=== PATIENT | male | born 1980 | race Caucasian/White ===

== ENCOUNTER 2024-06-28 10:00 | Emergency (ER) | payer OTHER, SELFPAY ==
--- NOTE | 2024-06-28 10:18 | ED.URI ---
HPI - URI/Sore Throat General Chief Complaint: Upper Respiratory Infection Stated Complaint: sorethroat, nasal drainage Time Seen by Provider: 06/28/24 10:18 Source: patient and RN notes reviewed Mode of arrival: ambulatory Limitations: no limitations History of Present Illness HPI Narrative: 43-year-old male presents Express Care complaining of upper respiratory symptoms for 2 days. Patient states her daughter who was diagnosed with strep throat approximately 4 days ago was treated with antibiotics. Patient states he has a sore throat, congestion, cough. Patient denies any fevers, body aches, chills, ear pain, chest pain or shortness of breath. Patient has not tried anything [id number] for symptom management. Patient states he leaves for [email or web address] in 2 days. Related Data Allergies Allergy/AdvReac Type Severity Reaction Status Date / Time No Known Allergies Allergy Verified 06/28/24 10:20 Review of Systems Review of Systems: CONSTITUTIONAL: Denies fever, chills, or sweats. EYES: Denies visual changes, redness, or discharge. ENT: Denies rhinorrhea or otalgia. Positive for congestion and sore throat. CARDIOVASCULAR: Denies chest pain, palpitations, or edema. RESPIRATORY: Positive for cough negative for dyspnea. GASTROINTESTINAL: Denies abdominal pain, nausea, vomiting, or diarrhea. GENITOURINARY: Denies dysuria or hematuria. SKIN: Denies rash or itching. MUSCULOSKELETAL: Denies back pain, joint pain, or myalgia. NEUROLOGIC: Denies headache, numbness, or weakness. PSYCHIATRIC: Denies anxiety or depression. All other systems reviewed are negative, except as documented in HPI. PMFSH Comments At the time of my signature, I reviewed and agree with the nursing past medical, surgical, social, and family history. There is no relevant family history pertinent to the patient complaint. Exam Narrative: GENERAL: This is a well-nourished, well-developed adult, in no apparent distress. They are non ill-appearing, nontoxic appearing. HEAD: normocephalic, atraumatic. EYES: Sclera clear/white. Vision is grossly intact. EARS: External ears normal, auditory canals clear and without drainage, TMs normal without perforation. Hearing grossly intact. NOSE: External nose normal with no obvious nasal discharge, nasal turbinates erythematous bilaterally, no rhinorrhea. THROAT: Mucous membranes moist, posterior pharynx with mild erythema without swelling. Uvula midline. Postnasal drip present NECK: Neck supple, non-tender without lymphadenopathy, masses or thyromegaly. CARDIOVASCULAR: Regular rate and rhythm without murmurs, gallops, or rubs. RESPIRATORY: Clear to auscultation. Breath sounds equal bilaterally. No wheezes, rales, or rhonchi. SKIN: warm, Dry, intact with no suspicious lesions or rash, good texture and turgor. NEURO: awake, alert, and oriented to person, place and time. There were no obvious focal neurologic abnormalities. EXTREMITIES: No joint tenderness, effusion, or edema noted. Course Course Emergency Course: Patient is aware of diagnosis, understands and agrees to treatment plan. Anticipatory guidance given. Patient agrees to follow-up as directed and is aware of reasons to seek care at the emergency department. Portions of this record may have been created with voice recognition software Level of Care: Express Care Visit Vital Signs Vital signs: Vital Signs Temperature 97.5 F L 06/28/24 10:23 Pulse Rate 77 06/28/24 10:23 Respiratory Rate 18 06/28/24 10:23 Blood Pressure 134/88 06/28/24 10:23 Pulse Oximetry 99 06/28/24 10:23 Oxygen Delivery Room Air 06/28/24 10:23 Temperature 97.5 F L 06/28/24 10:23 Pulse Rate 77 06/28/24 10:23 Respiratory Rate 18 06/28/24 10:23 Blood Pressure 134/88 06/28/24 10:23 Pulse Oximetry 99 06/28/24 10:23 Oxygen Delivery Room Air 06/28/24 10:23 Reviewed MDM - URI/Sore Throat MDM Narrative Medical decision making narrative: Rapid strep is negative. Strep throat culture is pending. Center score of 0. It is likely patient has a viral illness. Since he was exposed to strep and leaving the country before throat culture will result, I will send a prescription of amoxicillin to the pharmacy and the patient has agreed to only take it if the strep culture becomes back positive. Otherwise he will treat his symptoms as a viral illness. Discussed physical exam findings. Advised supportive measures and signs/symptoms to go to the ER. Pt is appropriate for outpt treatment and f/u. Differential Diagnosis Differential diagnosis: Likely upper respiratory infection, viral infection and pharyngitis (Viral or stress) Lab Data Attestation: I reviewed the patient's lab results. Labs: Lab Results 06/28/24 Range/Units 10:29 POC Grp A Strep Screen Negative (Negative) Critical Care Time Critical Care Time Critical Care Time: No Discharge Plan Discharge Clinical Impression: Pharyngitis Qualifiers: Pharyngitis/tonsillitis etiology: unspecified etiology Qualified Code(s): J02.9 - Acute pharyngitis, unspecified Patient Disposition: Home Condition: Stable Instructions: Antibiotic Form, Pharyngitis (ED) Additional Instructions: Your rapid strep swab was negative today at [facility]. You will be notified in a few days if the culture comes back positive for strep. Since you are leaving the country before your culture will result, there will be a prescription for amoxicillin to fill, please do not take this unless your strep culture comes back positive. Your symptoms are likely due to a viral illness, which is not treated with antibiotics. Viral symptoms can be present for up to 10-14 days. Take ibuprofen or Tylenol for fever or pain. Rest and stay hydrated. Follow up with your PCP in 3-5 days if symptoms are not improving. Go to the ER immediately if you difficulty breathing or swallowing Patient Language: [place] Prescriptions: New amoxicillin 500 mg tablet 500 mg PO Q12H 10 Days Qty: 20 0RF Follow-up/Referrals: Krunal,Shruti Cheng MD [Primary Care Provider] - Time of Disposition: 10:44
[2024-06-28 10:23] VITALS: BP 134/88; PULSE 77; RESP 18; TEMP 36.4; O2SAT 99
[2024-06-28 10:31] LABS: EDSTREPNEGPOS1 Negative (Negative)
--- OUTSIDE RECORDS SUMMARY | 2024-06-28 10:56 | XMS_ITS | Clinical Summary ---
Author Organization [address] Address [address] [place] [id number] Care Team Providers Care Agricultural Extension Specialist Name Role Phone Harry Padilla MD Unavailable [phone] Shruti Hector MD Primary Care Pro vider Allergies No known active allergies Medications omeprazole (PriLOSEC) 20 mg capsuleIndications:Left sided abdominal pain Take 1 capsule daily for 8 weeks. Then take 1 capsule every other day for 2 weeks then stop. 63 capsule 025 Active atorvastatin (LIPITOR) 20 mg tabletIndications:Pure hypercholesterolemia Take 1 tablet (20 mg total) by mouth daily 30 tablet 11 022 2024 Discontinued Active Problems Problem Noted Date Diagnosed Date Chronic LLQ pain 12/22/2023 Assessment & Plan (12/22/2023 6:15 AM CDT): Chronic, worsening Encouraged to get lab work done, previously ordered by PCP Ordered CT abdomen pelvis with contrast Strict return precautions given seek ER evaluation BMI 25.0-25.9,adult 12/10/2018 Assessment & Plan (12/10/2018 9:53 AM CDT): BMI is okay. Normal range is 18-25 and overweight is 25-30. Continue to work on eating healthy and exercising at least 150 minutes per week. 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 Discussed diet and exercise Discussed skin cancer prevention and screening Reviewed labs Assessment & Plan (12/10/2018 9:51 AM CDT): PMH: 12/10/2018 Last colonoscopy/cologuard: Last PSA: Last tdap: 2016 Last Prevnar/pneumovax: Last Shingrix: Last eye exam: Pure hypercholesterolemia 12/10/2018 Assessment & Plan (01/20/2023 8:34 AM SALES PROGRAM MANAGER): Check lipids Continue statin Assessment & Plan (01/16/2022 9:47 AM CDT): Recheck lipids after starting atrovastatin Assessment & Plan (10/17/2021 12:53 PM CDT): Reviewed recent lipids, ldl >190 Discussed recommendations to start statin, will start atorvastatin Discussed diet and exercise Assessment & Plan (12/10/2018 9:55 AM CDT): New diagnosis. Discussion heart risk with patient. Patient will try lxjc-lzz-yowxnrs fish oil at 1000 mg daily. Patient will try to increase his exercise to 5 times a week. Educated patient on low-cholesterol diet. Patient will repeat labs next year through work. Encounters Date Type Department Care Team Description 06/17/2024 9:55 AM CDT Lab [facility] Lab [address] [place] [address] Left sided abdominal pain; Encounter for screening for other viral diseases; Pure hypercholesterolemi a; Annual physical exam 06/17/2024 Results Follow-Up [facility] Primary Care at [address] [phone] Shruti Hector MD 06/16/2024 3:30 PM CDT Office Visit [facility] Medical [facility] Primary Care at [address] [phone] Shruti Hector MD Left sided abdominal pain (Primary Dx); Pure hypercholesterolemi a; Encounter for screening for other viral diseases; Annual physical exam 06/13/2024 Telephone [facility] Primary Care at [address] [phone] Shruti Hector MD Appointment Request; warm transfer from Last 3 Months Immunizations Immunization Administration Dates Next Due Influenza, Unspecified 01/20/2023(Deferr ed: Patient Refused),01/16/2022(Deferred: Patient Refused) Tdap 06/16/2024(Deferred: Patient Ref used) Surgical History Surgery Date Site/Laterality Comments VASECTOMY 03/16/2018 - 03/15/2019 HERNIA REPAIR Medical History Medical History Date Comments Concussion as child Family History Medical History Relation Name Comments Heart attack Brother 1 Sukhwinder Hypertension Brother 1 Sukhwinder Anxiety disorder Brother 2 Cancer Father Santos Diverticulitis Father Santos Hypertension Father Santos cll Father Santos Heart attack Maternal Grandfather Bernard Breast cancer Maternal Grandmother Breast cancer Mother Jennifer Cancer Mother Jennifer Hypertension Mother Jennifer Kidney disease Mother Jennifer Stroke Mother Jennifer Liver cancer Paternal Grandfather Cancer Paternal Grandmother Gina Heart attack Paternal Grandmother Gina Anxiety disorder Sister 1 Asha Cancer Sister 1 Asha Bone cancer Sister 2 Breast cancer Sister 2 Liver cancer Sister 2 Anxiety disorder Sister 3 Relation Name Status Comments Brother 1 Sukhwinder Alive Brother 2 Alive Father Santos Maternal Grandfather Bernard Maternal Grandmother Mother Jennifer Alive Paternal Grandfather Paternal Grandmother Gina Sister 1 Asha Alive Sister 2 Sister 3 Alive Social History Tobacco Use Types Packs/Day Years Used Date Smoking Tobacco: Never Smokeless Tobacco: Never Alcohol Use Standard Drinks/Week Comments Yes 0 (1 standard drink = 0.6 oz pur e alcohol) AUDIT-C Answer Date Recorded Q1: How often do you have a drink containing alcohol? 4 or more times a week 10/15/2023 Q2: How many drinks containi ng alcohol do you have on a typical day when you are drinking? 1 or 2 Q3: How often do you have si x or more drinks on one occasion? Weekly 10/15/2023 PHQ-2 Answer Date Recorded PHQ-2 Total Score (If total score is 3 or more points, staff should administer the PHQ-9) 0 06/16/2024 Personal Safety Answer Date Recorded Have you ever been in or are you currently in a harmful physical or emotional relationship or is someone making you feel afraid or unsafe? Denies 10/26/2023 Sex and Gender Information Value Date Recorded Sex Assigned at Not on file Legal Sex Male 8:46 AM CDT Gender Identity Not on file Sexual Orientation Not on file Obstetrics History Last Filed Vital Signs Vital Sign Reading Time Taken Comments Blood Pressure 134/76 06/16/2024 3:30 PM CDT Pulse 96 06/16/2024 3:30 PM CDT Temperature 36.9 C (98.5 F) 06/16/2024 3:30 PM CDT Respiratory Rate 18 06/16/2024 3:30 PM CDT Oxygen Saturation 97% 06/16/2024 3:30 PM CDT Inhaled Oxygen Concentration - - Weight 89.6 kg (197 lb 8 oz) 06/16/2024 3:30 PM CDT Height 185.4 cm (6' 1 ) 06/16/2024 3:30 PM CDT Body Mass Index 26.06 06/16/2024 3:30 PM CDT Plan of Treatment Health Maintenance Due Date Last Done Comments Regular Well Visit/Exam 18-64 01/21/2024 01/20/2023, 01/20/2023, 01/16/2022, Additional history exists DTaP/Tdap/Td Vaccine (1 - Tdap) 06/16/2025 Postponed from 1993 (Patient declined, but will receive in the future) Depression Screening 06/16/2025 06/16/2024, 01/20/2023, 10/17/2021, Additional history exists Hepatitis B Screening Completed 06/17/2024 Hepatitis C Screening Completed 06/17/2024 HPV Vaccines Aged Out No longer eligi ble based on patient's age to complete this topic Influenza Vaccine Discontinued Pneumococcal vaccine <65 Aged Out No longer eligible based on patient's age to complete this topic Varicella Vaccines Discontinued Medical Devices Implanted Type Area Human Resources Hr Representative Device Identifier Shelf Expiration Date Model / Serial / Lot [employer]/C R Bard Ventralex St Sepra Sorbaflex 2.5in [place] Open Bioresorbable [id number] - [id number] Implanted:Qty: 1 on 10/26/2023 by Adriano Alvarado MD at [facility] Mesh N/A: Umbilical [employer] [id number] 08/10/2024 [id number] / / [id number] Procedures Procedure Name Priority Date/Time Associated Diagnosis Comments EGFR Routine 06/17/2024 10:30 AM CDT Annual physical exam DIFFERENTIAL AUTO Routine 06/17/2024 10: 30 AM CDT Annual physical exam HEMOGLOBIN A1C Routine 06/17/2024 10:30 AM CDT Annual physical exam CBC WITH AUTO DIFFERENTIAL Routine 06/17/2024 10:30 AM CDT Annual physical exam COMPREHENSIVE METABOLIC PANEL Routine 06/17/2024 10:30 AM CDT Annual physical exam THYROID FUNCTION CASCADE Routine 06/17/2024 10:30 AM CDT Annual physical exam LIPID PANEL Routine 06/17/2024 10:30 AM CDT Pure hypercholesterolem ia Annual physical exam H. PYLORI BREATH TEST Routine 06/17/2024 10:30 AM CDT Left sided abdominal pain HEPATITIS C ANTIBODY Routine 06/17/2024 10:30 AM CDT Encounter for screening for other viral diseases HEPATITIS B SURFACE ANTIGEN Routine 06/17/2024 10:30 AM CDT Encounter for screening for other viral diseases HEPATITIS B CORE ANTIBODY, TOTAL Routine 06/17/2024 10:30 AM CDT Encounter for screening for other viral diseases HEPATITIS B SURFACE ANTIBODY (IMMUNE STATUS) Routine 06/17/2024 10:30 AM CDT Encounter for screening for other viral diseases from Last 3 Months Results * eGFR (06/17/2024 10:30 AM CDT) eGFR >90 >=60 mL/min/1. 73 m2 Comment: Interpretive Data Reference Interval Normal >/= 90 mL/min/1.73m2 Mildly decreased* 60 - 89 mL/min/1.73m2 Mildly to moderately decreased 45 - 59 mL/min/1.73m2 Moderately to severely decreased 30 - 44 mL/min/1.73m2 Severely decreased 15 - 29 mL/min/1.73m2 Kidney Failure < 15 mL/min/1.73m2 *Relative to young adult level Estimated glomerular filtration rate is determined by the 2020 CKD-EPI equation recommended by the National Kidney Foundation (A Unifying Approach to GFR Estimation: Recommendations of the NKF-ASK Task Force on Reassessing the Inclusion of Race in Diagnosing Kidney Disease, JASN 2020). The CKD-EPI equation should not be used for patients with unstable renal function and has not been validated in children and those over 70. Current interpretive data was last reviewed 2021. Testing performed by: [facility], [address] [place] [address]., [address] Blood 06/17/2024 10:3 0 AM CDT 06/17/2024 10:53 AM CDT us Shruti Hector MD LAB BLOOD ORDERAB LES Final Result [facility] [address] [facility] Department [place] [address] * Differential, auto (06/17/2024 10:30 AM CDT) Neutrophil abs 2.02 1.50 - 6.50 K/cumm Comment:Testing performed by : [address] [address] Imm gran abs 0.00 0.00 - 0.10 K/cumm ROS[facility] Comment:Testing performed by : [address] [address] Lymphocyte abs 1.61 0.80 - 3.30 K/cumm [facility] Comment:Testing performed by : [address] [address] Monocyte abs 0.49 0.20 - 0.80 K/cumm ROS[facility]IO Comment:Testing performed by : [address] [address] Eosinophil abs 0.09 0.00 - 0.50 K/cumm ROS[facility]IO Comment:Testing performed by : [address] [address] Basophil abs 0.03 0.00 - 0.10 K/cumm ROS[facility]IO Comment:Testing performed by : [address] [address] Neutrophil pct 47.6 % [facility] Comment: Interpretive Data Percent cell count reference ranges are not reported, since discordance with absolute values may lead to misinterpretation of CBC data. Current Interpretive Data was last revised on 2017. Testing performed by: [address] [address] Imm gran pct 0.0 % [facility] Comment: Interpretive Data Percent cell count reference ranges are not reported, since discordance with absolute values may lead to misinterpretation of CBC data. Current Interpretive Data was last revised on 2017. Testing performed by: [address] [address] Lymphocyte pct 38.0 % [facility] Comment: Interpretive Data Percent cell count reference ranges are not reported, since discordance with absolute values may lead to misinterpretation of CBC data. Current Interpretive Data was last revised on 2017. Testing performed by: [address] [address] Monocyte pct 11.6 % [facility] Comment: Interpretive Data Percent cell count reference ranges are not reported, since discordance with absolute values may lead to misinterpretation of CBC data. Current Interpretive Data was last revised on 2017. Testing performed by: [address] [address] Eosinophil pct 2.1 % [facility] Comment: Interpretive Data Percent cell count reference ranges are not reported, since discordance with absolute values may lead to misinterpretation of CBC data. Current Interpretive Data was last revised on 2017. Testing performed by: [address] [address] Basophil pct 0.7 % [facility] Comment: Interpretive Data Percent cell count reference ranges are not reported, since discordance with absolute values may lead to misinterpretation of CBC data. Current Interpretive Data was last revised on 2017. Testing performed by: [address] [address] Blood 06/17/2024 10:3 0 AM CDT 06/17/2024 10:54 AM CDT us Shruti Hector MD LAB BLOOD ORDERAB LES Final Result [facility] [address] [facility] Department [place] [address] * Thyroid Function [place] (06/17/2024 10:30 AM CDT) TSH 1.81 0.30 - 4.20 mcIUnit/mL Comment:Testing performed by : [address] [address] Blood 06/17/2024 10:3 0 AM CDT 06/17/2024 10:53 AM CDT us Shruti Hector MD LAB BLOOD ORDERAB LES Final Result [facility] [address] [facility] Department [place] [address] * CBC with auto differential (06/17/2024 10:30 AM CDT) WBC 4.24 3.80 - 9.90 K/cumm Comment:Testing performed by : [address] [address] Hgb 16.2 13.0 - 17.5 g/dL [facility] Comment:Testing performed by : [address] [address] Hct 49.4 38.9 - 50.3 % [facility] Comment:Testing performed by : [address] [address] Plt 254 150 - 400 K/cumm [facility] Comment:Testing performed by : [address] [address] MPV 9.9 9.1 - 12.3 fL [facility] Comment:Testing performed by : [address] [address] RBC 5.45 4.30 - 5.80 M/cumm [facility] Comment:Testing performed by : [address] [address] MCV 90.6 81.3 - 96.4 fL [facility] Comment:Testing performed by : [address] [address] MCH 29.7 27.1 - 33.3 pg [facility] MAGDALENO Comment:Testing performed by : [address] [address] MCHC 32.8 32.3 - 35.7 g/dL [facility] Comment:Testing performed by : [address] [address] RDW CV 12.4 11.1 - 14.9 % [facility] MAGDAL[facility] Comment:Testing performed by : [address] [address] RDW SD 40.6 35.7 - 48.1 fL [facility] MAG[facility] Comment:Testing performed by : [address] [address] NRBC abs 0.00 0.00 - 0.01 K/cumm [facility] MAGDALENO Comment:Testing performed by : [address] [address] Blood 06/17/2024 10:3 0 AM CDT 06/17/2024 10:54 AM CDT Shruti Hector MD LAB BLOOD ORDERAB LES Final Result Performing Organization Address [facility] de Phone Number [address] [place] [address] * Hepatitis C antibody Blood (06/17/2024 10:30 AM CDT) Hep C Ab Nonreactive Nonreactive Comment: Antibodies to HCV not detected. Does NOT exclude the possibility of recent exposure to HCV. Current interpretive data was last revised on 21 Interpretive Data Nonreactive: Antibodies to HCV not detected. Does NOT exclude the possibility of recent exposure to HCV. Equivocal: Equivocal for HCV antibodies. Supplemental molecular testing will be automatically performed to determine infection status in accordance with current CDC screening recommendations. Reactive: Positive for HCV antibodies. This may represent current or past HCV infection. Supplemental molecular testing will be automatically performed to determine current infection status in accordance with current CDC screening recommendations. Interpretive data was last revised on 2019. Blood 06/17/2024 10:3 0 AM CDT 06/17/2024 12:43 PM CDT Shruti Hector MD LAB MICROBIOLOGY - GENERAL ORDERABLES Final Result Performing Organization Address [facility] de Phone Number CERNER [address] [address] * H. pylori breath test (06/17/2024 10:30 AM CDT) Pathologist [facility] H. pylori, breath test Negative Negative [facility] Comment: Result indicates the absence of current Helicobacter pylori infection. Test Performed by: [facility] [address] [place] [address] Field Irrigation Worker: Linden Louise Ph.D.; CLIA# [id number] Testing performed by: [facility], [address] [place] [address]., [address] Breath 06/17/2024 10:3 0 AM CDT 06/17/2024 10:53 AM CDT Shruti Hector MD LAB BODY FLUIDS A ND STOOLS ORDERABLES Final Result [facility] [address] [address] [facility] * Hepatitis B core antibody, total Blood (06/17/2024 10:30 AM CDT) [facility] Hep B core IgG/IgM Nonreactive Nonreactive Comment:Testing performed by : [facility], [address] [facility] [place]., [address] Blood 06/17/2024 10:3 0 AM CDT 06/17/2024 1:44 PM CDT Shruit Hector MD LAB MICRO BIOLOGY - GENERAL ORDERABLES Edited Result - Final [facility] [address] [address] * Hepatitis B surface antibody (immune status) Blood (06/17/2024 10:30 AM CDT) Pathologist [facility] HBsAb (immune status) Nonreactive Comment: Interpretive Data Nonreactive: This result is consistent with a lack of immunity to Hepatitis B Virus when used in the setting of routine screening. Equivocal: The immune status of the individual should be further assessed, if appropriate, after consideration of clinical status, risk factors, and additional diagnostic information. Reactive: This result is consistent with immunity to Hepatitis B Virus when used in the setting of routine screening. Current interpretive data was last revised on 19. Blood 06/17/2024 10:3 0 AM CDT 06/17/2024 12:43 PM CDT Shruti Hector MD LAB MICROBIOLOGY - GENERAL ORDERABLES Final Result Performing Organization Address [facility] Co de Phone Number [address] [address] * Hepatitis B Surface Antigen Blood (06/17/2024 10:30 AM CDT) HepBsAg Nonreactive Nonreactive Blood 06/17/2024 10:3 0 AM CDT 06/17/2024 12:43 PM CDT Shruti Hector MD LAB MICROBIOLOGY - GENERAL ORDERABLES Final Result Performing Organization Address [facility] de Phone Number [address] [address] * Hemoglobin A1c (06/17/2024 10:30 AM CDT) Pathologist [facility] Hgb A1C 5.2 4.0 - 5.6 % Comment:Testing performed by : [address] [address] Estimated Average Glucose 103 mg/dL [facility] Comment: The ADA recommends reporting an estimated Average Glucose (eAG) with all Hemoglobin A1c results using the equation derived from a study of 507 normal and diabetic adults. Minority populations were underrepresented and children were not included. (Diabetes Care 31:8904-6851, 2008). The eAG is not equivalent to a fasting glucose. Testing performed by: [address] [address] Blood 06/17/2024 10:3 0 AM CDT 06/17/2024 10:54 AM CDT us Shruti Hector MD LAB BLOOD ORDERAB LES Final Result [facility] MAG[facility] [address] [facility] Department [place] [address] * (ABNORMAL) Lipid panel (06/17/2024 10:30 AM CDT) Cholesterol 254(H) 30 - 199 mg/dL Comment: Interpretive Data Ages < or = 19 years Acceptable: <170 mg/dL Borderline high: 170-199 mg/dL High: >or= 200 mg/dL Ages > or = 20 years Desirable: <200 mg/dL Borderline high: 200-239 mg/dL High: >or= 240 mg/dL Literature References: 1. Expert Panel on Integrated Guidelines for Cardiovascular Health and Risk Reduction in Children and Adolescents. Pediatrics 2011;128:S213 2. NCEP Expert Panel. Circulation 2004;110:227 Current Interpretive Data was last revised on 2017. Testing performed by: [address] [address] Triglycerides 105 <=149 mg/dL [facility] Comment: Interpretive Data Ages < or = 9 years Acceptable: <75 mg/dL Borderline high: 75-99 mg/dL High: >or= 100 mg/dL Ages 10 to 20 years Acceptable: <90 mg/dL Borderline high: 90-129 mg/dL High: >or= 130 mg/dL Ages > or = 20 years Desirable: <150 mg/dL Borderline high: 150-199 mg/dL High: 200-499 mg/dL Very high: >or= 499 mg/dL Literature References: 1. Expert Panel on Integrated Guidelines for Cardiovascular Health and Risk Reduction in Children and Adolescents. Pediatrics 2011;128:S213 2. NCEP Expert Panel. Circulation 2004;110:227 Current Interpretive Data was last revised on 2017. Testing performed by: [address] [address] HDL 51 >=40 mg/dL [facility] Comment: Interpretive Data Ages < or = 19 years Acceptable: >45 mg/dL Borderline low: 40-45 mg/dL Low: <40 mg/dL Ages > or = 20 years Desirable: >or= 60 mg/dL Low: <40 mg/dL Literature References: 1. Expert Panel on Integrated Guidelines for Cardiovascular Health and Risk Reduction in Children and Adolescents. Pediatrics 2011;128:S213 2. NCEP Expert Panel. Circulation 2004;110:227 Current Interpretive Data was last revised on 2017. Testing performed by: [address] [address] LDL, calculated 184(H) <=129 mg/dL [facility] Comment: Interpretive Data Ages < or = 19 years Acceptable: <110 mg/dL Borderline high: 110-129 mg/dL High: >or= 130 mg/dL Ages > or = 20 years Optimal: <100 mg/dL Near optimal: 100-129 mg/dL Borderline high: 130-159 mg/dL High: >160 mg/dL Calculated using the Nikhil LDL-C estimating equation. This equation was implemented on 2023. Prior to this date LDL-C was estimated using the Friedewald equation. Literature References: 1. Expert Panel on Integrated Guidelines for Cardiovascular Health and Risk Reduction in Children and Adolescents. Pediatrics 2011;128:S213 2. NCEP Expert Panel. Circulation 2004;110:227 3. Nikhil Durbin et al. NYDIA Cardiol. 2019July 14;5(5):540-548. doi: 10.1001/jamacardio.2020.0013 Current Interpretive Data was last revised on 2023. Testing performed by: [address] [address] Non-HDL Cholesterol 203 mg/dL [facility] Comment: Interpretive Data Ages < or = 19 years Acceptable: <120 mg/dL Borderline high: 120-144 mg/dL High: >145 mg/dL Ages > or = 20 years When triglycerides are >200 mg/dL, Non-HDL cholesterol is a secondary target of therapy with treatment goals that are 30 mg/dL greater than the LDL cholesterol target. Literature References: 1. Expert Panel on Integrated Guidelines for Cardiovascular Health and Risk Reduction in Children and Adolescents. Pediatrics 2011;128:S213 2. NCEP Expert Panel. Circulation 2004;110:227 Current Interpretive Data was last revised on 2017. Testing performed by: [address] [address] Chol/HDL ratio 5 [facility] Comment:Testing performed by : [address] [address] Blood 06/17/2024 10:3 0 AM CDT 06/17/2024 10:53 AM CDT us Shruti Hector MD LAB BLOOD ORDERAB LES Final Result [facility] [address] [facility] Department [place] [address] * (ABNORMAL) Comprehensive metabolic panel (06/17/2024 10:30 AM CDT) Sodium 138 135 - 145 mmol/L Comment:Testing performed by : [address] [address] Potassium, pl 4.5 3.3 - 4.9 mmol/L [facility] Comment: Hemolyzed; Potassium value may be falsely elevated by as much as 1.0 mmol/L. Suggest redraw and reanalysis. Testing performed by: [address] [address] Chloride 101 97 - 110 mmol/L [facility] Comment:Testing performed by : [address] [address] CO2 28 22 - 32 mmol/L [facility] Comment:Testing performed by : [address] [address] Anion gap 9 2 - 15 mmol/L [facility] Comment:Testing performed by : [address] [address] BUN 10 6 - 25 mg/dL [facility] Comment:Testing performed by : [address] [address] Creatinine 0.90 0.80 - 1.30 mg/dL [facility] Comment:Testing performed by : [address] [address] Glucose 91 70 - 199 mg/dL [facility] Comment: Interpretive Data Fasting glucose >/= 126 mg/dl is diagnostic for diabetes. Fasting is defined as no caloric intake for at least 8 hours. Fasting glucose between 100 mg/dl to 125 mg/dl is diagnostic of prediabetes. In a patient with classic symptoms of hyperglycemia or hyperglycemic crisis, a random glucose >/= 200 mg/dl is diagnostic for diabetes. In the absence of unequivocal hyperglycemia, results should be confirmed by repeat testing. The classification and Diagnosis of Diabetes Diabetes Care 2021; 46: S19-S40. Current interpretive data was last revised 2022. Testing performed by: [address] [address] Calcium 9.6 8.5 - 10.3 mg/dL ROSALIO Comment:Testing performed by : [address] [address] Bilirubin, total 0.8 0.1 - 1.2 mg/dL ROSALIO Comment:Testing performed by : [address] [address] Protein, pl 7.6 6.5 - 8.5 g/dL ROSALIO Comment:Testing performed by : [address] [address] Albumin 4.6 3.5 - 5.0 g/dL ROSALIO Comment:Testing performed by : [address] [address] Alk phos 33(L) 40 - 130 Units/L ROSALIO Comment:Testing performed by : [address] [address] ALT 14 7 - 55 Units/L ROSALIO Comment:Testing performed by : [address] [address] AST 21 10 - 50 Units/L ROSALIO Comment:Testing performed by : [address] [address] Blood 06/17/2024 10:3 0 AM CDT 06/17/2024 10:53 AM CDT Shruti Hector MD LAB BLOOD ORDERAB LES Final Result [facility] [address] [facility] Department [place] [address] from Last 3 Months Insurance CIG[employer] CIGNA Care Teams Agricultural Extension Specialist Relationship Specialty Start Date End Date Shruti Hector MD [address] [place], [place] [id number] PCP - General Family Medicine 10/17/21 Harry Padilla MD [address] [place], [place] [id number] Consulting Physician Family Medicine 11/23/18
--- OUTSIDE RECORDS SUMMARY | 2024-06-28 10:56 | XMS_ITS | Encounter Summary ---
Author Organization [facility] Healthcare Address [address] [place] [address] Care Team Providers Care Dry Cell Battery Assembler Name Role Phone Harry Padilla MD Unavailable +- [phone] Shruti Hector MD Primary Care Pro vider Encounter Details Date Type Department Care Team ([facility] st Contact Info) Description 06/17/2024 Results Follow-Up [facility] Medical Group Primary Care at [address] [phone] Shruti Hector MD [address] [place] [phone] Social History Tobacco Use Types Packs/Day Years [...] on file Sexual Orientation Not on file documented as of this encounter Plan of Treatment Not on file documented as of this encounter Visit Diagnoses Not on filedocumented in this encounter Care Teams Dry Cell Battery Assembler Relationship Specialty Start Date End Date Shruti Hector MD [address] [place] [address] PCP - General Family Medicine 10/17/21 Harry Padilla MD [address] [place] [address] Consulting Physician Family Medicine 11/23/18 documented as of this encounter
--- OUTSIDE RECORDS SUMMARY | 2024-06-28 10:56 | XMS_ITS | Clinical Summary ---
Author Organization [facility] Address [address] [place] [address] Care Team Providers Care Spice Mixer Name Role Phone None, Provider MD Primary Care Provider Unavaila ble Social History Tobacco Use Types Packs/Day Years Used Date Smoking Tobacco: Never Assessed Sex and Gender Information Value Date Recorded Sex Assigned at Not on file Legal Sex Male 4:46 PM CDT Gender Identity Not on file Sexual Orientation Not on file Last Filed Vital Signs Vital Sign Reading Time Taken Comments Blood Pressure 110/74 12/18/2016 8:43 AM CDT Pulse 69 12/18/2016 8:43 AM CDT Temperature - - Respiratory Rate - - Oxygen Saturation - - Inhaled Oxygen Concentration - - Weight 83.9 kg (185 lb) 12/18/2016 8:43 AM CDT Height 182.9 cm (6') 12/18/2016 8:43 AM CDT Body Mass Index 25.09 12/18/2016 8:43 AM CDT Plan of Treatment Health Maintenance Due Date Last Done Comments Annual Physical 1985 Hepatitis C 2000 DTaP, Tdap and Td Vaccines ( 1 - Tdap) 2001 Hepatitis B Vaccines (1 of 3 - 19+ 3-dose series) 2001 COVID-19 Vaccine (2023-2 5 season) 2023 HPV Vaccines Aged Out No longer eligi ble based on patient's age to complete this topic Meningococcal B Vaccine Aged Out No l onger eligible based on patient's age to complete this topic Meningococcal Vaccine Aged Out No cecile nida eligible based on patient's age to complete this topic Pneumococcal Vaccine: Pediat rics (0 to 5 Years) and At-Risk Patients (6 to 49 Years) Aged Out No longer eligible b ased on patient's age to complete this topic RSV Immunizations Under 20 Months Aged Out No longer eligible based on patient's age to complete this topic Insurance [facility] Care Teams Spice Mixer Relationship Specialty Start Date End Date None, Provider, PCP - General 02/12/21
--- OUTSIDE RECORDS SUMMARY | 2024-06-28 10:56 | XMS_ITS | Referral Summary ---
Author Organization [address] Address [address] [place] [id number] Care Team Providers Care Singer Songwriter Name Role Phone Harry Padilla MD Unavailable + [phone] Shruti Hector MD Primary Care Pro vider Encounters Date Type Department Care Team Description 06/17/2024 Results Follow-Up [facility] Medical Group Primary Care at [address] [phone] Shruti Hector MD 06/17/2024 9:55 AM CDT Lab [facility] Lab [address] [place] [address] Left sided abdominal pain; Encounter for screening for other viral diseases; Pure hypercholesterolemi a; Annual physical exam 06/16/2024 3:30 PM CDT Office Visit [facility] Medical Group Primary Care at [address] [phone] Shruti Hector MD Left sided abdominal pain (Primary Dx); Pure hypercholesterolemi a; Encounter for screening for other viral diseases; Annual physical exam 06/13/2024 Telephone [facility] at [address] [phone] Shruti Hector MD Appointment Request; warm transfer from Last 3 Months Allergies No known active allergies Medications omeprazole [...] 12/10/2018 Last colonoscopy/cologuard: Last PSA: Last tdap: 2015 Last Prevnar/pneumovax: Last Shingrix: Last eye exam: Assessment & Plan (01/20/2023 8:34 AM GEAR 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 SET UP OPERATOR): Reviewed PMH & FH Reviewed medications and [...] 12/10/2018 Last colonoscopy/cologuard: Last PSA: Last tdap: 2015 Last Prevnar/pneumovax: Last Shingrix: Last eye exam: Pure hypercholesterolemia 12/10/2018 Assessment & Plan (01/20/2023 8:34 AM GEAR SHAPER SET UP OPERATOR): Check lipids Continue statin Assessment & Plan (01/16/2022 9:47 AM CDT): Recheck lipids after starting atrovastatin Assessment & Plan (10/17/2021 12:53 PM CDT): Reviewed recent lipids, ldl >190 Discussed recommendations to start statin, will start atorvastatin Discussed diet and exercise Assessment & Plan (12/10/2018 9:55 AM CDT): New diagnosis. Discussion heart risk with patient. Patient will try lndd-hpt-oxcnwey fish oil at 1000 mg daily. Patient will try to increase his exercise to 5 times a week. Educated patient on low-cholesterol diet. Patient will repeat labs next year through work. Immunizations Immunization Administration Dates Next Due Influenza, Unspecified 01/20/2023(Deferr ed: Patient Refused),01/16/2022(Deferred: Patient Refused) Tdap 06/16/2024(Deferred: Patient Ref used) Social History Tobacco Use Types Packs/Day Years [...] 06/16/2024 3:30 PM CDT Plan of Treatment Not on file Medical Devices Implanted Type Area Porter Used Car Lot Device Identifier Shelf Expiration Date Model / Serial / Lot [employer]/C R Bard Ventralex St Sepra Sorbaflex 2.5in [facility] Bioresorbable [id number] - [id number] Implanted:Qty: 1 on 10/26/2023 by Adriano Alvarado MD at [facility] Mesh N/A: Umbilical [employer]/C R Bard [id number] 08/10/2024 [id number] / / [id number] Procedures Procedure Name Priority Date/Time Associated Diagnosis [...] of Race in Diagnosing Kidney Disease, JASN 202). The CKD-EPI equation should not be used for patients with unstable renal function and has not been validated in children and those over 70. Current interpretive data was last reviewed 2021. Testing performed by: [address] [address] Blood 06/17/2024 10:3 0 AM CDT 06/17/2024 10:53 AM CDT us Shruti Hector MD LAB BLOOD ORDERAB LES Final Result ROSALIO MAGDALENO [address] [place] [address] [place] [address] * Differential, auto (06/17/2024 10:30 AM CDT) Neutrophil abs 2.02 1.50 - 6.50 K/cumm Comment:Testing performed by : [address] [address] Imm gran abs 0.00 0.00 - 0.10 K/cumm ROSALIO Comment:Testing performed by : [address] [address] Lymphocyte abs 1.61 0.80 - 3.30 K/cumm ROSALIO Comment:Testing performed by : [address] [address] Monocyte abs 0.49 0.20 - 0.80 K/cumm ROSALIO Comment:Testing performed by : [address] [address] Eosinophil abs 0.09 0.00 - 0.50 K/cumm ROSALIO Comment:Testing performed by : [address] [address] Basophil abs 0.03 0.00 - 0.10 K/cumm ROSALIO Comment:Testing performed by : [address] [address] Neutrophil pct 47.6 % ROSALIO Comment: Interpretive Data Percent cell count reference ranges are not reported, since discordance with absolute values may lead to misinterpretation of CBC data. Current Interpretive Data was last revised on 2017. Testing performed by: [address] [address] Imm gran pct 0.0 % [facility] Comment: Interpretive Data Percent cell count reference ranges are not reported, since discordance with absolute values may lead to misinterpretation of CBC data. Current Interpretive Data was last revised on 2017. Testing performed by: [address] [address] Lymphocyte pct 38.0 % [facility] Comment: Interpretive Data Percent cell count reference ranges are not reported, since discordance with absolute values may lead to misinterpretation of CBC data. Current Interpretive Data was last revised on 2017. Testing performed by: [address] [address] Monocyte pct 11.6 % [facility] Comment: Interpretive Data Percent cell count reference ranges are not reported, since discordance with absolute values may lead to misinterpretation of CBC data. Current Interpretive Data was last revised on 2017. Testing performed by: [address] [address] Eosinophil pct 2.1 % [facility] Comment: Interpretive Data Percent cell count reference ranges are not reported, since discordance with absolute values may lead to misinterpretation of CBC data. Current Interpretive Data was last revised on 2017. Testing performed by: [address] [address] Basophil pct 0.7 % [facility] Comment: Interpretive Data Percent cell count reference ranges are not reported, since discordance with absolute values may lead to misinterpretation of CBC data. Current Interpretive Data was last revised on 2017. Testing performed by: [address] [address] Blood 06/17/2024 10:3 0 AM CDT 06/17/2024 10:54 AM CDT Shruti Hector MD LAB BLOOD ORDERAB LES Final Result Performing Organization Address City/[facility] Co de Phone Number ROSALIO [address] [facility] [place] [address] * Thyroid Function Mcdonald (06/17/2024 10:30 AM CDT) Pathologist [facility] TSH 1.81 0.30 - 4.20 mcIUnit/mL Comment:Testing performed by : [address] [address] Blood 06/17/2024 10:3 0 AM CDT 06/17/2024 10:53 AM CDT Shruti Hector MD LAB BLOOD ORDERAB LES Final Result Performing Organization Address City/[facility] Co de Phone Number ROSALIO [address] [facility] [place] [address] * CBC with auto differential (06/17/2024 10:30 AM CDT) Pathologist [facility] WBC 4.24 3.80 - 9.90 K/cumm Comment:Testing performed by : [address] [address] Hgb 16.2 13.0 - 17.5 g/dL ROSALIO MAGDALENO Comment:Testing performed by : [address] [address] Hct 49.4 38.9 - 50.3 % ROSALIO MAGDALENO Comment:Testing performed by : [address] [address] Plt 254 150 - 400 K/cumm ROSALIO MAGDALENO Comment:Testing performed by : [address] [address] MPV 9.9 9.1 - 12.3 fL ROSALIO MAGDALENO Comment:Testing performed by : [address] [address] RBC 5.45 4.30 - 5.80 M/cumm ROSALIO MAGDALENO Comment:Testing performed by : [address] [address] MCV 90.6 81.3 - 96.4 fL ROSALIO MAGDALENO Comment:Testing performed by : [address] [address] MCH 29.7 27.1 - 33.3 pg ROSALIO MAGDALENO Comment:Testing performed by : [address] [address] MCHC 32.8 32.3 - 35.7 g/dL ROSALIO MAGDALENO Comment:Testing performed by : [address] [address] RDW CV 12.4 11.1 - 14.9 % ROSALIO Comment:Testing performed by : [address] [address] RDW SD 40.6 35.7 - 48.1 fL ROSALIO Comment:Testing performed by : [address] [address] NRBC abs 0.00 0.00 - 0.01 K/cumm ROSALIO Comment:Testing performed by : [address] [address] Blood 06/17/2024 10:3 0 AM CDT 06/17/2024 10:54 AM CDT Shruti Hector MD LAB BLOOD ORDERAB LES Final Result [facility] [address] [facility] Department of Laboratories [place], [place] [id number] * Hepatitis C antibody Blood (06/17/2024 10:30 [...] GENERAL ORDERABLES Final Result Performing Organization Address [facility] [place] [address] * H. pylori breath test (06/17/2024 10:30 AM CDT) H. pylori, breath test Negative Negative [facility] Comment: Result indicates the absence of current Helicobacter pylori infection. Test Performed by: [facility] [address] [place] [address] Spinning Mule Tender: Linden Louise Ph.D.; CLIA# [id number] Testing performed by: [facility], [address] [place] [address], [address] Breath 06/17/2024 10:3 0 AM CDT 06/17/2024 10:53 AM CDT Shruti Hector MD LAB BODY FLUIDS A ND STOOLS ORDERABLES Final Result Performing Organization Address [facility] Co de Phone Number MICHELLE[address] [address] [facility] * Hepatitis B core antibody, total Blood (06/17/2024 10:30 AM CDT) Hep B core IgG/IgM Nonreactive Nonreactive Comment:Testing performed by : [facility], [address] [facility], [place]., [address] Blood 06/17/2024 10:3 0 AM CDT 06/17/2024 1:44 PM CDT Shruti Hector MD LAB MICRO BIOLOGY - GENERAL ORDERABLES Edited Result - Final Performing Organization Address City/[facility] de Phone Number ROSALIO [address] [facility] [place] [address] * Hepatitis B surface antibody (immune status) Blood (06/17/2024 10:30 AM CDT) [facility] HBsAb (immune status) Nonreactive Comment: Interpretive Data [...] GENERAL ORDERABLES Final Result Performing Organization Address [facility] de Phone Number [facility] [address] [place] [address] * Hepatitis B Surface Antigen Blood (06/17/2024 10:30 AM CDT) [facility] HepBsAg Nonreactive Nonreactive Blood 06/17/2024 10:3 0 AM CDT 06/17/2024 12:43 PM CDT Shruti Hector MD LAB MICROBIOLOGY - GENERAL ORDERABLES Final Result Performing Organization Address [facility] Co de Phone Number [facility] [address] [facility] [place] [address] * Hemoglobin A1c (06/17/2024 10:30 AM CDT) [facility] Hgb A1C 5.2 4.0 - 5.6 % Comment:Testing performed by : [facility], [address] [place] [address], [place]., [address] Estimated Average Glucose 103 mg/dL ROSALIO MAGDALENO Comment: The ADA recommends reporting an estimated Average Glucose (eAG) with all Hemoglobin A1c results using the equation derived from a study of 507 normal and diabetic adults. Minority populations were underrepresented and children were not included. (Diabetes Care 31:3056-9084, 2008). The eAG is not equivalent to a fasting glucose. Testing performed by: [facility], [address] [place] [address]., [address] Blood 06/17/2024 10:3 0 AM CDT 06/17/2024 10:54 AM CDT us Shruti Hector MD LAB BLOOD ORDERAB LES Final Result ROSALIO [address] [facility] [place] [address] * (ABNORMAL) Lipid panel (06/17/2024 10:30 AM [...] last revised on 2017. Testing performed by: [address] [address] Triglycerides 105 <=149 mg/dL ROSALIO MAGDALENO Comment: Interpretive Data Ages < or = [...] last revised on 2017. Testing performed by: [address] [address] HDL 51 >=40 mg/dL ROSALIO Comment: Interpretive [...] last revised on 2017. Testing performed by: [address] [address] LDL, calculated 184(H) <=129 mg/dL ROSALIO Comment: [...] 3. Nikhil Durbin et al. NYDIA Cardiol. 2020 July 14;5(5):540-548. doi: 10.1001/jamacardio.2020.0013 Current Interpretive Data was last revised on 2023. Testing performed by: [address] [address] Non-HDL Cholesterol 203 mg/dL ROSALIO Comment: Interpretive [...] last revised on 2017. Testing performed by: [address] [address] Chol/HDL ratio 5 ROSALIO Comment:Testing performed by : [address] [address] Blood 06/17/2024 10:3 0 AM CDT 06/17/2024 10:53 AM CDT us Shruti Hector MD LAB BLOOD ORDERAB LES Final Result ROSALIO [facility] [facility] Department [place] [address] * (ABNORMAL) Comprehensive metabolic panel (06/17/2024 10:30 AM CDT) Pathologist [facility] Sodium 138 135 - 145 mmol/L Comment:Testing performed by : [address] [address] Potassium, pl 4.5 3.3 - 4.9 mmol/L ROSALIO MAGDALENO Comment: Hemolyzed; Potassium value may be falsely elevated by as much as 1.0 mmol/L. Suggest redraw and reanalysis. Testing performed by: [address] [address] Chloride 101 97 - 110 mmol/L ROSALIO MAGDALENO Comment:Testing performed by : [address] [address] CO2 28 22 - 32 mmol/L ROSALIO MAGDALENO Comment:Testing performed by : [address] [address] Anion gap 9 2 - 15 mmol/L ROSALIO MAGDALENO Comment:Testing performed by : [address] [address] BUN 10 6 - 25 mg/dL [facility] Comment:Testing performed by : [address] [address] Creatinine 0.90 0.80 - 1.30 mg/dL ROSALIO Comment:Testing performed by : [address] [address] Glucose 91 70 - 199 mg/dL [facility] Comment: Interpretive Data Fasting glucose >/= 126 [...] was last revised 2022. Testing performed by: [address] [address] Calcium 9.6 8.5 - 10.3 mg/dL [facility] Comment:Testing performed by : [address] [address] Bilirubin, total 0.8 0.1 - 1.2 mg/dL [facility] Comment:Testing performed by : [address] [address] Protein, pl 7.6 6.5 - 8.5 g/dL [facility] Comment:Testing performed by : [address] [address] Albumin 4.6 3.5 - 5.0 g/dL [facility] Comment:Testing performed by : [address] [address] Alk phos 33(L) 40 - 130 Units/L ROSALIO Comment:Testing performed by : [address] [address] ALT 14 7 - 55 Units/L ROSALIO Comment:Testing performed by : [address] [address] AST 21 10 - 50 Units/L ROSALIO MAGDALENO Comment:Testing performed by : [facility], [address] [place] [address], [place]., [address] Blood 06/17/2024 10:3 0 AM CDT 06/17/2024 10:53 AM CDT us Shruti Hector MD LAB BLOOD ORDERAB LES Final Result Performing Organization Address City/State/[facility] Co de Phone Number ROSALIO [address] [facility] [place] [address] from Last 3 Months Insurance [employer] C[employer] Care Teams Singer Songwriter Relationship Specialty Start Date End Date Shruti Hector MD [address] [place] [address] PCP - General Family Medicine 10/17/21 Harry Padilla MD [address] [place] [address] Consulting Physician Family Medicine 11/23/18
== END 2024-06-28 10:49 | disposition home or self-care (01) ==
PROVIDERS: PCP Hospitalist
DX: J02.9 Acute pharyngitis, unspecified (principal)
CPT/HCPCS: 87081; 87880; 99203; G0463